=== PATIENT | female | born 1990 | race Caucasian/White ===

== ENCOUNTER → 2024-05-20 08:25 | Outpatient (REF) | payer BC, SELFPAY | LOC: PNTC 08:25 | PROVIDERS: ATTENDING PHYSICIAN Obstetrics & Gynecology | DX: O36.80X0 Pregnancy with inconclusive fetal viability, not applicable or unspecified (principal) | CPT/HCPCS: 76801 ==

== ENCOUNTER → 2024-06-24 07:55 | Outpatient (REF) | payer BC, SELFPAY | LOC: PNTC 07:55 | PROVIDERS: ATTENDING PHYSICIAN Obstetrics & Gynecology | DX: Z36.0 Encounter for antenatal screening for chromosomal anomalies (principal); Z36.82 Encounter for antenatal screening for nuchal translucency | CPT/HCPCS: 76801; 76813 ==

== ENCOUNTER → 2024-07-08 08:59 | Outpatient (REF) | payer BC, SELFPAY | LOC: PNTC 08:59 | PROVIDERS: ATTENDING PHYSICIAN Obstetrics & Gynecology | DX: O9A.212 Injury, poisoning and certain other consequences of external causes complicating pregnancy, second trimester (principal); Z03.72 Encounter for suspected placental problem ruled out | CPT/HCPCS: 76805 ==

== ENCOUNTER → 2024-08-16 07:52 | Outpatient (REF) | payer BC, SELFPAY | LOC: PNTC 07:52 | PROVIDERS: ATTENDING PHYSICIAN Obstetrics & Gynecology | DX: Z36.0 Encounter for antenatal screening for chromosomal anomalies (principal) | CPT/HCPCS: 76816 ==

== ENCOUNTER → 2024-09-29 10:54 | Outpatient (REF) | payer BC, SELFPAY | LOC: PNTC 10:54 | PROVIDERS: ATTENDING PHYSICIAN Obstetrics & Gynecology | DX: O9A.212 Injury, poisoning and certain other consequences of external causes complicating pregnancy, second trimester (principal) | CPT/HCPCS: 76816 ==

== ENCOUNTER → 2024-10-21 15:41 | Outpatient (REF) | payer BC, SELFPAY | LOC: PNTC 15:41 | PROVIDERS: ATTENDING PHYSICIAN Student in an Organized Health Care Education/Training Program | DX: O36.8190 Decreased fetal movements, unspecified trimester, not applicable or unspecified (principal) | CPT/HCPCS: 59025 ==

== ENCOUNTER 2024-11-11 09:34 | Observation (INO) | payer BC, SELFPAY ==
[2024-11-11 10:08] VITALS: BP 120/65; BMI 24.8
[2024-11-11 10:20] LABS: Hematocrit 34.8 % (37.0-47.0); Hemoglobin 11.9 g/dL (12.0-16.0); Mean Corp Hgb Conc. 34.2 g/dL (33.0-37.0); Mean Corpuscular Hgb 29.2 pg (27.0-31.0); Mean Corpuscular Volume 85.5 fL (81.0-99.0); Mean Platelet Volume 10.8 fL (7.4-10.4); Platelet Count 188 10^3/uL (130-400); Red Blood Cell Count 4.07 10^6/uL (4.20-5.40); Red Cell Dist. Width 12.6 % (11.5-14.5); White Blood Cell Count 10.1 10^3/uL (4.8-10.8)
== END 2024-11-11 12:30 | disposition home or self-care (01) ==
LOC: PNTC-IN 09:34
PROVIDERS: ADMITTING PHYSICIAN Obstetrics & Gynecology
DX: O36.8130 Decreased fetal movements, third trimester, not applicable or unspecified (principal); O9A.213 Injury, poisoning and certain other consequences of external causes complicating pregnancy, third trimester; Z3A.33 33 weeks gestation of pregnancy; Z91.010 Allergy to peanuts; Z91.018 Allergy to other foods
CPT/HCPCS: 76816; 85027; 85460; 86850; 86900; 86901; G0378

== ENCOUNTER 2024-12-18 12:19 | Observation (INO) | payer BC, SELFPAY ==
[2024-12-18 12:27] VITALS: BP 139/93; BMI 26.5
[2024-12-18 12:57] LABS: Hematocrit 33.2 % (37.0-47.0); Hemoglobin 11.9 g/dL (12.0-16.0); Mean Corp Hgb Conc. 35.8 g/dL (33.0-37.0); Mean Corpuscular Hgb 29.7 pg (27.0-31.0); Mean Corpuscular Volume 82.8 fL (81.0-99.0); Mean Platelet Volume 10.8 fL (7.4-10.4); Platelet Count 215 10^3/uL (130-400); Red Blood Cell Count 4.01 10^6/uL (4.20-5.40); Red Cell Dist. Width 13.4 % (11.5-14.5); White Blood Cell Count 11.2 10^3/uL (4.8-10.8)
[2024-12-18 13:04] LABS: ALT (SGPT) 16 U/L (0-35); AST (SGOT) 19 U/L (14-36); Albumin 3.3 g/dl (3.5-5.0); Alkaline Phosphatase 127 U/L (38-126); Blood Urea Nitrogen 12 mg/dl (7-17); Calcium 9.3 mg/dl (8.4-10.2); Carbon Dioxide 22 mmol/L (22-30); Chloride 106 mmol/L (98-107); Estimated Creatinine Clearance 108 ml/min; Glucose 96 mg/dl (70-99); Potassium 4.1 mmol/L (3.5-5.1); Sodium 135 mmol/L (135-145); Total Bilirubin 0.4 mg/dl (0.2-1.3); Total Protein 6.1 g/dl (6.3-8.2); eGFR > 60.00
[2024-12-18 13:30] LABS: Urine Albumin Negative (Neg - Trace); Urine Bilirubin Negative (Negative); Urine Character Cloudy (Clear); Urine Color Yellow; Urine Glucose Negative (Negative); Urine Ketone Negative (Negative); Urine Leukocyte 3+ (Negative); Urine Nitrite Negative (Negative); Urine Occult Blood 1+ (Negative); Urine Specific Gravity 1.015 (<1.030); Urine Urobilinogen Negative (Neg - 1+)
[2024-12-18 13:57] LABS: Urine Bacteria Many (Negative); Urine Squamous Cell 16-20 /LPF (Few)
[2024-12-18 14:21] LABS: Protein/creatinine Ratio 0.1; Urine Protein 10 mg/dl
== END 2024-12-18 13:59 | disposition home or self-care (01) ==
LOC: LDRP 12:19
PROVIDERS: ADMITTING PHYSICIAN Obstetrics & Gynecology
DX: Z34.83 Encounter for supervision of other normal pregnancy, third trimester (principal); Z3A.38 38 weeks gestation of pregnancy
CPT/HCPCS: 80053; 81003; 81015; 82570; 84156; 85027; 86850; 86900; 86901; G0378

== ENCOUNTER 2024-12-29 09:30 | Inpatient (IN) | payer BC, SELFPAY ==
[2024-12-29 09:47] VITALS: BP 123/78; BMI 25.9
[2024-12-29] MEDS: LR 1000 IV (10:33)
[2024-12-29 11:05] LABS: % Basophils 0.2 % (0-2); % Eosinophils 0.3 % (0-6); % Immature Granulocytes 1.4 % (0-0.5); % Lymphocytes 14.1 % (20.5-51.1); % Monocytes 9.8 % (1.7-9.3); % Neutrophils 74.2 % (42.2-75.2); Absolute Immature Granulocytes 0.2 10^3/uL (0-0.05); Absolute Lymphocytes 1.7 10^3/uL (1.2-3.4); Absolute Monocytes 1.2 10^3/uL (0.1-0.6); Absolute Neutrophils 8.8 10^3/uL (1.4-6.5); Hematocrit 34.5 % (37.0-47.0); Hemoglobin 11.9 g/dL (12.0-16.0); Mean Corp Hgb Conc. 34.5 g/dL (33.0-37.0); Mean Corpuscular Volume 84.1 fL (81.0-99.0); Mean Platelet Volume 10.9 fL (7.4-10.4); Nucleated Red Blood Cells % 0 %; Platelet Count 216 10^3/uL (130-400); White Blood Cell Count 11.8 10^3/uL (4.8-10.8)
[2024-12-29] MEDS: PITOCIN 30 UNITS/NSS 500 ML IV (14:06)
[2024-12-29] MEDS: SUBLIMAZE 100 MCG EPIDURAL (14:47)
[2024-12-29] MEDS: FENTANYL/BUPIVACAINE 100 EPIDURAL (14:47)
[2024-12-29] MEDS: TYLENOL 650 MG PO (22:12)
[2024-12-29] MEDS: MOTRIN 600 MG PO (22:12)
[2024-12-29] MEDS: SENOKOT-S 1 TABLET PO (22:18)
[2024-12-30] MEDS: MOTRIN 600 MG PO ×3 (05:07→20:07)
[2024-12-30] MEDS: TYLENOL 650 MG PO ×3 (05:07→20:06)
[2024-12-30 05:49] LABS: Hematocrit 31.1 % (37.0-47.0); Hemoglobin 10.4 g/dL (12.0-16.0)
[2024-12-30] MEDS: PRENATAL PLUS PO (15:25)
[2024-12-31] MEDS: TYLENOL 650 MG PO ×2 (02:02→08:05)
[2024-12-31] MEDS: MOTRIN 600 MG PO ×2 (02:02→08:05)
[2024-12-31] MEDS: PRENATAL PLUS 1 TABLET PO (08:05)
[2024-12-31 14:05] LABS: Syphilis/T. pallidum Ab Reflex Negative (Negative)
== END 2024-12-31 11:04 | disposition home or self-care (01) | DRG 807 ==
LOC: LDRP 09:30
PROVIDERS: ADMITTING PHYSICIAN Obstetrics & Gynecology
PROC: 10E0XZZ Delivery of Products of Conception, External Approach (ICD-10-PCS; 2024-12-29)
PROC: 0KQM0ZZ Repair Perineum Muscle, Open Approach (ICD-10-PCS; 2024-12-29)
PROC: 10907ZC Drainage of Amniotic Fluid, Therapeutic from Products of Conception, Via Natural or Artificial Opening (ICD-10-PCS; 2024-12-29)
PROC: 3E033VJ Introduction of Other Hormone into Peripheral Vein, Percutaneous Approach (ICD-10-PCS; 2024-12-29)
DX: O48.0 Post-term pregnancy (principal); Z37.0 Single live birth; Z3A.40 40 weeks gestation of pregnancy; O69.81X0 Labor and delivery complicated by cord around neck, without compression, not applicable or unspecified; O70.1 Second degree perineal laceration during delivery
CPT/HCPCS: 36415; 85014; 85018; 85025; 86780; 86850; 86900; 86901